=== PATIENT | female | born 1965 | race Caucasian/White ===

== ENCOUNTER 2023-12-10 08:00 | Emergency (ER) | payer BC ==
[2023-12-10] MEDS ORDERED: Amoxicillin/Clavulanate K 875-125 MG Tab ONE (08:45)
== END 2023-12-10 08:48 | disposition home or self-care (01) ==
LOC: LB.ED 08:00
DX: J01.91 Acute recurrent sinusitis, unspecified (principal); Z87.891 Personal history of nicotine dependence; Z79.899 Other long term (current) drug therapy; Z79.82 Long term (current) use of aspirin; Z88.2 Allergy status to sulfonamides
CPT/HCPCS: 99283; A9270